=== PATIENT | female | born 1960 | race Caucasian/White ===

== ENCOUNTER 2021-07-19 12:47 | Inpatient (IN) | payer SELFPAY ==
[~2021-07-19] VITALS: Ht 167.6 cm; Wt 85.0 kg
[2021-07-19 13:13] LABS: BASOPHILS ABSOLUTE AUTO 0.06 K/mm3 (0.00-0.23); BASOPHILS PERCENT AUTO 1 % (0-2); EOSINOPHILS ABSOLUTE AUTO 0.12 K/mm3 (0.00-0.68); EOSINOPHILS PERCENT AUTO 3 % (0-6); Hematocrit 36.8 % (33.0-51.0); IMMATURE GRAN ABSOLUTE AUTO 0.02 K/mm3 (0.00-0.10); IMMATURE GRAN PERCENT AUTO 0 % (0-1); LYMPHOCYTES ABSOLUTE AUTO 1.64 K/mm3 (0.84-5.20); LYMPHOCYTES PERCENT AUTO 34 % (21-46); MONOCYTES ABSOLUTE AUTO 0.37 K/mm3 (0.16-1.47); MONOCYTES PERCENT AUTO 8 % (4-13); Mean Corpuscular HGB 28.4 pg (26.0-34.0); Mean Corpuscular HGB Conc 32.6 g/dL (31.5-36.5); Mean Corpuscular Volume 87 fL (80-100); Mean Platelet Volume 9.7 fL (9.1-12.4); NEUTROPHILS ABSOLUTE AUTO 2.58 K/mm3 (1.96-9.15); NEUTROPHILS PERCENT AUTO 54 % (41-73); Platelet Count 242 K/mm3 (150-400); RDW Coefficient Variation 13.3 % (11.7-14.2); RDW Standard Deviation 42.5 fL (35.1-46.3); Red Blood Cell Count 4.22 M/mm3 (3.80-5.20); White Blood Cell Count 4.79 K/mm3 (4.00-11.30)
[2021-07-19 13:32] LABS: Acetaminophen, Random <2.0 ug/mL (10.0-30.0); Alanine Aminotransfer (ALT/SGP 11 U/L (12-78); Albumin, Blood 2.7 g/dL (3.4-5.0); Albumin/Globulin Ratio 0.8 (0.8-1.8); Alk Phos 85 U/L (50-136); Anion Gap 6 mmol/L (6-16); Aspartate Aminotrans (AST/SGOT 11 U/L (12-37); Bilirubin, Total 0.2 mg/dL (0.1-1.0); Blood Urea Nitrogen 15 mg/dL (8-24); Bun/Creatinine Ratio 12.7 (12.0-20.0); CO2, Blood 24 mmol/L (21-32); Chloride, Blood 109 mmol/L (98-108); Creatinine, Blood 1.18 mg/dL (0.40-1.00); Ethanol (Alcohol), Blood, Med <3 mg/dL; Free Thyroxine 0.84 ng/dL (0.70-1.60); Globulin, Blood 3.2 g/dL (2.2-4.0); Glomerular Filtration Rate 46 (60-); Glucose, Blood 94 mg/dL (70-99); Salicylate <1.7 mg/dL (2.8-20.0); Sodium, Blood 139 mmol/L (136-145); Total Protein, Blood 5.9 g/dL (6.4-8.2)
[2021-07-19 13:51] LABS: Source, Urine Catheter
[2021-07-19 13:56] LABS: Appearance, Urine Clear (Clear); Bilirubin, Urine Neg (Neg); Blood, Urine Neg (Neg); Color, Urine Yellow (P-Yellow); Glucose Qualitative, Urine Neg (Neg); Ketones, Urine Neg (Neg); Leukocyte Esterase, Urine Neg (Neg); Nitrite, Urine Neg (Neg); Protein, Urine Neg (Neg); Specific Gravity, Urine 1.015 (1.003-1.022); Urobilinogen, Urine NORM (Normal)
[2021-07-19 14:05] LABS: Valproic Acid 33.1 ug/mL (50.0-100.0)
[2021-07-19 14:10] LABS: U Amphetamine Screen Not Detected; U Barbituate Screen Not Detected; U Benzodiazapine Screen DETECTED; U Buprenorphine Screen Not Detected; U Cocaine Screen Not Detected; U Methadone Screen Not Detected; U Methamphetamine Screen Not Detected; U Opiates Screen Not Detected; U Phencyclidine Screen Not Detected
[2021-07-19 14:11] LABS: U Oxycodone Screen Not Detected; U Propoxyphene Screen Not Detected
[2021-07-19 14:12] LABS: U Cannabinoids Screen Not Detected
[2021-07-19] MEDS ORDERED: OMEP20ER PO (14:44)
[2021-07-19] MEDS ORDERED: Prinivil10 MG PO (14:44)
[2021-07-19] MEDS ORDERED: LAMICTAL25 M1 PO (14:45)
[2021-07-19] MEDS ORDERED: TRAZ100 PO (14:46)
[2021-07-19] MEDS ORDERED: OXYB5 (14:46)
[2021-07-19] MEDS ORDERED: DIVA250ER (14:47)
[2021-07-19] MEDS ORDERED: TOPI100 PO (14:48)
[2021-07-19] MEDS ORDERED: ALPR.5 PO (14:48)
[2021-07-19] MEDS ORDERED: HYDR1TAB94 PO (14:49)
[2021-07-19] MEDS ORDERED: METO25ER (14:49)
--- NOTE | 2021-07-19 16:55 | NUR ---
PT ARRIVED TO ICU.
[2021-07-19] MEDS ORDERED: AMIT25 PO (17:39)
[2021-07-19 18:30] LABS: Valproic Acid 90.3 ug/mL (50.0-100.0)
--- NOTE | 2021-07-19 18:55 | NUR ---
SHIFT SUMMARY: Pt admitted to ICU from ED. She arrived intubated with 7.0 tube at 23 at the teeth. Pt moving BUE with stimulation. BLE flaccid. Pupils 2mm and reactive. Vent settings now at AC/VC, fiO2 35%, PEEP 5. OG on low intermittant suction. One dose of PRN hydralazine given upon pt arrival to unit. Home medications sent home with significant other. This RN spoke with poison control who recommend obtaining a valproate q 4 hours and an ammonia level daily.
--- NOTE | 2021-07-19 22:10 | NUR ---
PT'S SO SAMAN IS UPDATED BY PHONE. NO SIGNIFICANT CHANGES. HE IS INFORMED OF VISITING HOURS AND WILL CHECK IN TOMORROW.
--- NOTE | 2021-07-19 22:43 | NUR ---
PT IS INTUBATED AND SEDATED, ON VENTILATOR. DIRECT LINE OF SIGHT MONITORING
--- NOTE | 2021-07-19 22:50 | NUR ---
POISON CONTROL IS UPDATED WITH PT CONDITION. WILL UPDATE HOSPITALIST AND ADVISE OF POISON CONTROL RECOMMENDATION FOR DAILY AMMONIA LEVEL AND VALPROIS ACID LEVEL Q4.
[2021-07-19 23:43] LABS: Valproic Acid 123.5 ug/mL (50.0-100.0)
--- NOTE | 2021-07-20 00:55 | NUR ---
SAUL AT POISON CONTROL UPDATED WITH VALPROIC ACID LEVEL AND AMMONIA LEVEL. HE RECOMMENDS CONTINUING Q4 VALPROIC ACID LEVELS AND REPEAT AMMONIA LEVEL WITH AM LABS TOMORROW, 07/21/21. HOPSITALIST ALSO UPDATED.
[2021-07-20 03:50] LABS: BASOPHILS ABSOLUTE AUTO 0.03 K/mm3 (0.00-0.23); BASOPHILS PERCENT AUTO 0 % (0-2); EOSINOPHILS ABSOLUTE AUTO 0.07 K/mm3 (0.00-0.68); EOSINOPHILS PERCENT AUTO 1 % (0-6); Hematocrit 38.8 % (33.0-51.0); Hemoglobin 13.2 g/dL (11.5-16.0); IMMATURE GRAN ABSOLUTE AUTO 0.06 K/mm3 (0.00-0.10); IMMATURE GRAN PERCENT AUTO 1 % (0-1); LYMPHOCYTES ABSOLUTE AUTO 1.24 K/mm3 (0.84-5.20); LYMPHOCYTES PERCENT AUTO 11 % (21-46); MONOCYTES ABSOLUTE AUTO 0.53 K/mm3 (0.16-1.47); MONOCYTES PERCENT AUTO 5 % (4-13); Mean Corpuscular HGB 28.6 pg (26.0-34.0); Mean Corpuscular Volume 84 fL (80-100); Mean Platelet Volume 9.5 fL (9.1-12.4); NEUTROPHILS ABSOLUTE AUTO 9.25 K/mm3 (1.96-9.15); NEUTROPHILS PERCENT AUTO 83 % (41-73); Platelet Count 262 K/mm3 (150-400); RDW Coefficient Variation 13.2 % (11.7-14.2); RDW Standard Deviation 40.6 fL (35.1-46.3); Red Blood Cell Count 4.62 M/mm3 (3.80-5.20); White Blood Cell Count 11.18 K/mm3 (4.00-11.30)
--- NOTE | 2021-07-20 04:06 | NUR ---
SAMAN, PT'S SO, IS UPDATED BY PHONE. HE WILL CHECK IN LATER.
[2021-07-20 04:22] LABS: Alanine Aminotransfer (ALT/SGP 12 U/L (12-78); Albumin, Blood 2.5 g/dL (3.4-5.0); Albumin/Globulin Ratio 0.7 (0.8-1.8); Alk Phos 95 U/L (50-136); Anion Gap 10 mmol/L (6-16); Aspartate Aminotrans (AST/SGOT 11 U/L (12-37); Bilirubin, Total 0.3 mg/dL (0.1-1.0); Blood Urea Nitrogen 15 mg/dL (8-24); Bun/Creatinine Ratio 13.9 (12.0-20.0); CO2, Blood 22 mmol/L (21-32); Calcium, Blood 8.5 mg/dL (8.5-10.1); Chloride, Blood 107 mmol/L (98-108); Creatinine, Blood 1.08 mg/dL (0.40-1.00); Globulin, Blood 3.6 g/dL (2.2-4.0); Glomerular Filtration Rate 51 (60-); Glucose, Blood 97 mg/dL (70-99); Magnesium, Blood 1.9 mg/dL (1.6-2.4); Potassium, Blood 3.4 mmol/L (3.5-5.5); Sodium, Blood 139 mmol/L (136-145); Total Protein, Blood 6.1 g/dL (6.4-8.2)
[2021-07-20 05:13] LABS: Valproic Acid 128.7 ug/mL (50.0-100.0)
--- NOTE | 2021-07-20 05:16 | NUR ---
DR WOODRUFF IS CONTACTED REGARDING PT'S BP AND LENGTHENING QTC. ORDER FOR NS BOLUS RECEIVED. NO 12-LEAD EKG ORDERED
--- NOTE | 2021-07-20 05:33 | NUR ---
POISON CONTROL IS UPDATED. SEE NURSE NOTIFY REGARDING POTASSIUM AND MAGNESIUM LEVELS.
--- NOTE | 2021-07-20 06:06 | NUR ---
PT REMAINS SEDATED AND ON VENT WITH SAME SETTING ALL NIGHT. SHE WAS INITIALLY HYPERTENSIVE, BUT BP TRENDED DOWN GRADUALLY AND PT BECAME HYPOTENSIVE. NS FLUID BOLUS WAS GIVEN AND PT PLACED SUPINE WITH LEGS RAISED AND WARM BLANKETS APPLIED. BP IMPROVED WITH INTERVENTION. PUPILS ARE NOW 1MM, NO OTHER SIGNIFICANT CHANGES OCCURRED. POISON CONTROL IS FOLLOWING. WILL CONTINUE TO MONITOR AND REPORT TO ONCOMING SHIFT.
--- NOTE | 2021-07-20 07:00 | NUR ---
ASSUME CARE: I have assumed care of pt. At this time she is intubated and sedated with propofol at 15.
[2021-07-20 07:46] LABS: Valproic Acid 132.1 ug/mL (50.0-100.0)
--- NOTE | 2021-07-20 10:31 | NUR ---
POISON CONTROL: This RN spoke to poison control and updated them on pt status
[2021-07-20 16:16] LABS: Valproic Acid 114.6 ug/mL (50.0-100.0)
--- NOTE | 2021-07-20 18:34 | NUR ---
SHIFT SUMMARY: Propofol continues at 15. Valproate now trending down. K and mag replaced. Vent settings AC/VC 30%, peep 5. Tube feeds started at 25 mls/hr and now up to 35 mls/hr; goal rate is 50. Pt's silver colored locket necklace sent home with her significant other.
[2021-07-21 00:14] LABS: Valproic Acid 127.5 ug/mL (50.0-100.0)
--- NOTE | 2021-07-21 03:02 | NUR ---
SAMAN, PT'S SO, IS UPDATED BY PHONE.
[2021-07-21 03:28] LABS: BASOPHILS ABSOLUTE AUTO 0.01 K/mm3 (0.00-0.23); BASOPHILS PERCENT AUTO 0 % (0-2); EOSINOPHILS ABSOLUTE AUTO 0.04 K/mm3 (0.00-0.68); EOSINOPHILS PERCENT AUTO 0 % (0-6); Hematocrit 33.8 % (33.0-51.0); Hemoglobin 11.3 g/dL (11.5-16.0); IMMATURE GRAN ABSOLUTE AUTO 0.03 K/mm3 (0.00-0.10); IMMATURE GRAN PERCENT AUTO 0 % (0-1); LYMPHOCYTES ABSOLUTE AUTO 1.06 K/mm3 (0.84-5.20); LYMPHOCYTES PERCENT AUTO 9 % (21-46); MONOCYTES ABSOLUTE AUTO 0.44 K/mm3 (0.16-1.47); MONOCYTES PERCENT AUTO 4 % (4-13); Mean Corpuscular HGB 28.5 pg (26.0-34.0); Mean Corpuscular HGB Conc 33.4 g/dL (31.5-36.5); Mean Corpuscular Volume 85 fL (80-100); Mean Platelet Volume 9.6 fL (9.1-12.4); NEUTROPHILS ABSOLUTE AUTO 10.39 K/mm3 (1.96-9.15); NEUTROPHILS PERCENT AUTO 87 % (41-73); Platelet Count 202 K/mm3 (150-400); RDW Coefficient Variation 13.6 % (11.7-14.2); RDW Standard Deviation 42.7 fL (35.1-46.3); Red Blood Cell Count 3.96 M/mm3 (3.80-5.20); White Blood Cell Count 11.97 K/mm3 (4.00-11.30)
[2021-07-21 03:47] LABS: Alanine Aminotransfer (ALT/SGP 12 U/L (12-78); Albumin, Blood 1.9 g/dL (3.4-5.0); Albumin/Globulin Ratio 0.6 (0.8-1.8); Alk Phos 85 U/L (50-136); Anion Gap 8 mmol/L (6-16); Aspartate Aminotrans (AST/SGOT 8 U/L (12-37); Bilirubin, Total 0.2 mg/dL (0.1-1.0); Blood Urea Nitrogen 15 mg/dL (8-24); Bun/Creatinine Ratio 16.8 (12.0-20.0); CO2, Blood 21 mmol/L (21-32); Chloride, Blood 109 mmol/L (98-108); Creatinine, Blood 0.89 mg/dL (0.40-1.00); Globulin, Blood 3.4 g/dL (2.2-4.0); Glomerular Filtration Rate >60 (60-); Glucose, Blood 129 mg/dL (70-99); Potassium, Blood 3.6 mmol/L (3.5-5.5); Sodium, Blood 138 mmol/L (136-145); Total Protein, Blood 5.3 g/dL (6.4-8.2)
[2021-07-21 04:02] LABS: Valproic Acid 189.6 ug/mL (50.0-100.0)
--- NOTE | 2021-07-21 04:02 | NUR ---
POISON CONTROL IS UPDATED WITH AM LABS AND MOST RECENT VALPROIC ACID LEVEL WHICH IS CRITICALLY HIGH AT 189.6. WILL CALL DR. WOODRUFF FOR ORDERS.
[2021-07-21 04:26] LABS: Magnesium, Blood 2.2 mg/dL (1.6-2.4)
--- NOTE | 2021-07-21 06:14 | NUR ---
PT REMAINS SEDATED AND ON VENTILATOR WITH SAME SETTINGS. SHE RESPONDS ONLY TO ORAL SX WITH GRIMACE, NO RESPONSE TO PAIN IN EXT, HOMA 2MM. BP LABILE. SPUTUM CX PENDING, LS CLEAR, COARSE IN L BASE AT TIMES WITH OCAMPO/YELLOW/BROWN SPUTUM SX FROM ETT. BT ACTIVE WITH TF AT GOAL, NO RESIDUALS. GUILLERMO DRAINING GREENISH URINE. POISON CONTROL FOLLOWING AND NEXT VALPROIC ACID LEVEL IS DUE AT 0715. WILL CONTINUE TO MONITOR AND REPORT TO ONCOMING SHIFT.
[2021-07-21 08:00] LABS: Valproic Acid 178.6 ug/mL (50.0-100.0)
--- NOTE | 2021-07-21 09:36 | NUR ---
ASSUMED CARE PATIENT CONTINUES TO BE INTUBATED AND SEDATED ON 10MCG OF PROPOFOL. SHE IS RESTRAINTED BILATERALLY UPPER EXTREMETIES. SHE WITHDREW ALL EXTREMETIES TO PAINFUL STIMULI. + KENYETTA HOWEVER SLUGGISH TO LIGHT. WILL CONTINUE MONITOR. DID SPEAK WITH SO "SAMAN" AND GAVE HIM AN UPDATE.
[2021-07-21 12:26] LABS: Valproic Acid 178.9 ug/mL (50.0-100.0)
[2021-07-21 15:56] LABS: Valproic Acid 187.3 ug/mL (50.0-100.0)
--- NOTE | 2021-07-21 16:06 | NUR ---
Pt. was mostly unconsious. Prayed pastorally with pt. When I finished SO Zhao arrived. Established rapport with spouse. Facilitaed a short life review. SO verbalized gratitude for the visit and welcomed my return.
--- NOTE | 2021-07-21 18:11 | NUR ---
END OF SHIFT NOTE MUSA HAS BEEN STILL SEDATED/DROWSY ON THE VENTILATOR. SHE IS FOLLOWING COMMANDS TO LIFT EYE BROWS WHEN ASKED TO OPEN HER EYES. SHE WITHDRAWLS ALL EXTREMETIES TO PAINFUL STIMULI. SHE HAS COPIOUS ORAL SECRETIONS AND TENACIOUS OCAMPO/CREAMY SECRETIONS FROM THE ETT. SHE DOES HAVE A COUGH AND GAG WHEN STIMULATED. SHE HAS POSITIVE BT'S AND FLATUS BUT NO BM OF YET. HER VALPROIC ACID LEVELS CONTINUE TO INCREASE (SEE LABS). DR AARON IS AWARE. SIGNIFICANT OTHER WAS IN AT BEDSIDE TODAY AND ALSO SPOKE TO DR AARON ABOUT MUSA'S TREATMENT PLAN. PATIENT REMAINS RESTRAINED DUE TO HER UNPREDICTABLE STATE AND BEING LIGHTLY SEDATED WHILE ON THE VENTILATOR. WILL GIVE REPORT TO ONCOMING SHIFT TO RESUME CARE.
--- NOTE | 2021-07-21 19:30 | NUR ---
ASSUMED CARE OF PATIENT AT 1900. SHE REMAINS SEDATED AND INTUBATED, VENT SETTINGS UNCHANGED. VALPROIC ACID LEVEL HAS CONTINUED TO BE HIGH. POC FOR PT TO REMAIN INTUBATED UNTIL THIS TRENDS DOWN.
[2021-07-21 19:59] LABS: Valproic Acid 153.1 ug/mL (50.0-100.0)
[2021-07-21 23:41] LABS: Valproic Acid 120.7 ug/mL (50.0-100.0)
[2021-07-22 03:20] LABS: BASOPHILS ABSOLUTE AUTO 0.03 K/mm3 (0.00-0.23); BASOPHILS PERCENT AUTO 0 % (0-2); EOSINOPHILS ABSOLUTE AUTO 0.08 K/mm3 (0.00-0.68); EOSINOPHILS PERCENT AUTO 1 % (0-6); Hematocrit 29.5 % (33.0-51.0); Hemoglobin 10.1 g/dL (11.5-16.0); IMMATURE GRAN ABSOLUTE AUTO 0.12 K/mm3 (0.00-0.10); IMMATURE GRAN PERCENT AUTO 1 % (0-1); LYMPHOCYTES ABSOLUTE AUTO 0.62 K/mm3 (0.84-5.20); LYMPHOCYTES PERCENT AUTO 4 % (21-46); MONOCYTES PERCENT AUTO 6 % (4-13); Mean Corpuscular HGB 29.1 pg (26.0-34.0); Mean Corpuscular HGB Conc 34.2 g/dL (31.5-36.5); Mean Corpuscular Volume 85 fL (80-100); Mean Platelet Volume 9.6 fL (9.1-12.4); NEUTROPHILS ABSOLUTE AUTO 12.62 K/mm3 (1.96-9.15); NEUTROPHILS PERCENT AUTO 89 % (41-73); Platelet Count 180 K/mm3 (150-400); RDW Coefficient Variation 14.1 % (11.7-14.2); RDW Standard Deviation 43.7 fL (35.1-46.3); Red Blood Cell Count 3.47 M/mm3 (3.80-5.20); White Blood Cell Count 14.27 K/mm3 (4.00-11.30)
[2021-07-22 03:36] LABS: Valproic Acid 103.3 ug/mL (50.0-100.0)
--- NOTE | 2021-07-22 03:51 | NUR ---
PT'S SO YANIV IS UPDATED BY PHONE
[2021-07-22 03:57] LABS: Anion Gap 6 mmol/L (6-16); Blood Urea Nitrogen 15 mg/dL (8-24); Bun/Creatinine Ratio 16.9 (12.0-20.0); CO2, Blood 22 mmol/L (21-32); Calcium, Blood 8.4 mg/dL (8.5-10.1); Chloride, Blood 110 mmol/L (98-108); Creatinine, Blood 0.89 mg/dL (0.40-1.00); Glomerular Filtration Rate >60 (60-); Glucose, Blood 147 mg/dL (70-99); Potassium, Blood 4.1 mmol/L (3.5-5.5); Sodium, Blood 138 mmol/L (136-145)
[2021-07-22 04:50] LABS: PCO2 Arterial 29.1 mmHg (35-45); PO2 Arterial 69.4 mmHg (80-100); pH Blood Arterial 7.52 (7.35-7.45)
--- NOTE | 2021-07-22 06:08 | NUR ---
PT REMAINS INTUBATED AND ON VENT WITH SAME SETTINGS OVERNIGHT. SHE HAS SBT LASTING ABOUT 1 HOUR, PER DR. AARON. PT TOLERATES VENT AFTER RETURNING TO AC/VC MODE, SO PROPOFOL IS NOT RESTARTED. PT STARTS TO MOVE HER HEAD AND OPEN HER EYES, HOWEVER, SHE DOES NOT FOLLOW ANY COMMANDS AT THIS TIME. WILL CONTINUE TO MONITOR FOR SEDATION NEEDS. VALPROIC ACID LEVEL TRENDING DOWN WITH LAST VALUE 103.3. HOWEVER, AMMONIA LEVEL IS INCREASED FROM YESTERDAY. PT IS AFEBRILE AND LS ARE CLEAR. TF AT GOAL OF 55ML/HR. EXT WITH TRACE EDEMA ELEVATED ON PILLOWS. WILL CONTINUE TO MONITOR AND REPORT TO ONCOMING SHIFT.
[2021-07-22 07:19] LABS: Valproic Acid 92.4 ug/mL (50.0-100.0)
--- NOTE | 2021-07-22 14:08 | NUR ---
Pt. was mostly non responsive though breathingon her own. SO was present. Facilitated a short life review. SO (Zhao) was showing distress about the lack of progress in Pts. condition and was hoping to see a doctor. Normalized situation for the SO. Prayed with both Pt. and SO. SO displayed evidence of catharsis and emotion. SO inquired about local churches. Pt. and SO come from different confucianist backgrounds. SO verbalized gratitude for the visit. I would like to follow up and address the spiritual seeking particulary that of the SO.
--- NOTE | 2021-07-22 17:33 | NUR ---
SHIFT SUMMARY PT ON 15MCG PROPOFOL. MOVES ALL EXTREMETIES, OPENS EYES TO VOICE. LIFTS HEAD. DOES NOT TRACK OR FOLLOW COMMANDS. INTERMITTENT UPWARD GAZE. HAD 2 BMS TODAY. TF RUNNING 25ML/HR. SPONTANEOUS MODE ON VENT, 25% FIO2, PEEP 5. BOYFRIEND VISITED TODAY.
--- NOTE | 2021-07-22 20:00 | NUR ---
ASSUMED CARE OF PT AT 1915. REPORT RECEIVED AT BEDSIDE. PT PRESENTS IN BED. DOES OPEN EYES TO TACTILE STIMULUS. INTUBATED. PRESSURE SUPPORT 8/5 FIO2 25%. 99-100 PERCENT SATURATED. SECRETIONS MODERATE YELLOW. WILL REVIEW CHART AND PLAN OF CARE FOR THIS PT.
--- NOTE | 2021-07-23 01:32 | NUR ---
PT OPENS EYES UPON APPROACH OF CARE FROM THIS RN. REMAINS ON PRESSURE SUPPORT. MAINTAINS > 95 PERCENT SATURATION.
[2021-07-23 04:54] LABS: BASOPHILS ABSOLUTE AUTO 0.02 K/mm3 (0.00-0.23); BASOPHILS PERCENT AUTO 0 % (0-2); EOSINOPHILS ABSOLUTE AUTO 0.14 K/mm3 (0.00-0.68); EOSINOPHILS PERCENT AUTO 1 % (0-6); Hematocrit 30.6 % (33.0-51.0); Hemoglobin 9.8 g/dL (11.5-16.0); IMMATURE GRAN ABSOLUTE AUTO 0.05 K/mm3 (0.00-0.10); IMMATURE GRAN PERCENT AUTO 1 % (0-1); LYMPHOCYTES ABSOLUTE AUTO 0.73 K/mm3 (0.84-5.20); LYMPHOCYTES PERCENT AUTO 7 % (21-46); MONOCYTES ABSOLUTE AUTO 0.73 K/mm3 (0.16-1.47); MONOCYTES PERCENT AUTO 7 % (4-13); Mean Corpuscular HGB 28.5 pg (26.0-34.0); Mean Corpuscular Volume 89 fL (80-100); Mean Platelet Volume 9.9 fL (9.1-12.4); NEUTROPHILS ABSOLUTE AUTO 8.14 K/mm3 (1.96-9.15); NEUTROPHILS PERCENT AUTO 83 % (41-73); Platelet Count 155 K/mm3 (150-400); RDW Standard Deviation 45.6 fL (35.1-46.3); Red Blood Cell Count 3.44 M/mm3 (3.80-5.20); White Blood Cell Count 9.81 K/mm3 (4.00-11.30)
[2021-07-23 05:22] LABS: Anion Gap 6 mmol/L (6-16); Blood Urea Nitrogen 18 mg/dL (8-24); Bun/Creatinine Ratio 21.3 (12.0-20.0); CO2, Blood 22 mmol/L (21-32); Calcium, Blood 8.9 mg/dL (8.5-10.1); Chloride, Blood 109 mmol/L (98-108); Creatinine, Blood 0.85 mg/dL (0.40-1.00); Glomerular Filtration Rate >60 (60-); Glucose, Blood 131 mg/dL (70-99); Potassium, Blood 4.1 mmol/L (3.5-5.5); Sodium, Blood 137 mmol/L (136-145); Valproic Acid 47.5 ug/mL (50.0-100.0)
--- NOTE | 2021-07-23 06:52 | NUR ---
PT HAD REMAINED ON PRESSURE SUPPORT THRU THE NIGHT UNTIL APPROX 0400 THIS AM. PT BEGAN TO HAVE TIDAL VOLUMES BELOW 300 ML. RESPIRATORY THERAPIST CHANGES PT BACK TO AC SETTINGS. INCREASED PROPOFOL TO 30 MCG'S/KG/MIN FOR VENT TOLERANCE. PT'S SIGNIFICANT OTHER SAMAN PHONES THIS MORING. UPDATE GIVEN. WILL CONTINUE TO MONITOR PT, AND WILL REPORT OFF TO ONCOMING RN.
--- NOTE | 2021-07-23 11:41 | NUR ---
PT EXTUBATED AT 1100. REIORIENTED TO TIME, PLACE AND SITUATION. ONCE REORIENTED PT BEGINS CRYING AND REPEATING "HE HATES ME," "I LOVE HIM," "HE WILL NEVER TRUST ME AGAIN." WHEN ASKED WHERE SHE IS AFTER REORIENTATION, PT REPEATS THE LETTERS "[facility]." WILL ATTEMPT ASSESSMENT AGAIN
--- NOTE | 2021-07-23 18:32 | NUR ---
SHIFT SUMMARY PT IS NOW ORIENTED TO SELF, PLACE, TIME AND SITUATION. VOICE IS STILL HOARSE, AND SHE IS ONLY ABLE TO ANSWER QUESTIONS IN SIMPLE SENTANCES. SHE OFTEN REPEATS HERSELF. MOVES ALL EXTREMETIES WITH EQUAL STRENGTH, BUT HAS GENERIZED WEAKNESS. PT NOW ON ROOM AIR WITH SATS >93%. OCCASIONAL PRODUCTIVE COUGH. STRENGTH OF COUGH HAS IMPROVED THROUGHOUT THE DAY. PT EDUCATED ON IMPORTANCE OF COUGH. PT STATES "MY SISTER WANTS TO KILL ME." SISTER'S NAME IS HUMZA. PER PATIENT, HUMZA LIVES IN [place]. SCREENER NOTIFIED BY COLOR DEVELOPER THAT HUMZA IS NOT TO VISIT. PT DENIES SI. SUICIDE PRECAUTIONS D/C'D BY DR. JAMES.
--- NOTE | 2021-07-23 19:36 | NUR ---
ASSUMED CARE OF PT AT 1915. REPORT RECEIVED. PT PRESENTS IN BED RESTING. BLOOD PRESSURES NOTED TO BE TRENDING UPWARDS. WILL CONSIDER INTERVENTIONS. WILL REVIEW CHART AND PLAN OF CARE FOR THIS PT.
--- NOTE | 2021-07-23 21:17 | NUR ---
PT STATUS CHANGED TO MEDICAL WITH TELE. NO PLANS AT THIS TIME TO TRANSFER PT TO MEDICAL FLOOR. DID DISCUSS WITH PT THAT THIS WAS A POSSIBILITY THIS NIGHT.
--- NOTE | 2021-07-23 22:40 | NUR ---
PT HAS STATUS CHANGE TO MEDICAL WITH TELE. NO PLANS AT THIS TIME TO MOVE PT FROM ICU ROOM 9. PT AWARE AND IS ACCEPTING IF ROOM IS NEEDED FOR ICU PT. UPON GREETING, PT WAS ASKING WHY HER BOYFRIEND "YANIV" WAS BEING LAUGHED AT, AND WHY PEOPLE WERE SAYING BAD THINGS ABOUT HER DOG. PT WAS REASSURED THAT NO ONE WAS SPEAKING ILL OF HER BOYFRIEND OR HER DOG. PT ACCEPTING OF THIS. WAS EASILY MOVED INTO CONVERSATION ABOUT HER LOVE FOR HER ANIMALS. PT HAS REMAINED TRUSTING, AND PLEASANT SINCE. POISON CONTROLLETI RN CALLS TO CHECK ON PT. UPDATE GIVEN. POISON CONTROL STATES THAT PATIENT WILL BE REMOVED FROM THEIR SERVICE UNLESS THEY ARE NEEDED AGAIN. WILL CONTINUE TO MONITOR PT.
--- NOTE | 2021-07-24 01:28 | NUR ---
PT TRANSFERRED TO ROOM 213. REPORT GIVEN TO YOLI JOHNSON. PT ABLE TO STAND AND PIVOT TRANSFER FROM BED TO BED. ALL BELONGINGS BROUGHT TO ROOM.
[2021-07-24 05:31] LABS: BASOPHILS ABSOLUTE AUTO 0.06 K/mm3 (0.00-0.23); BASOPHILS PERCENT AUTO 1 % (0-2); EOSINOPHILS ABSOLUTE AUTO 0.18 K/mm3 (0.00-0.68); EOSINOPHILS PERCENT AUTO 2 % (0-6); Hematocrit 34.1 % (33.0-51.0); Hemoglobin 10.8 g/dL (11.5-16.0); IMMATURE GRAN ABSOLUTE AUTO 0.06 K/mm3 (0.00-0.10); IMMATURE GRAN PERCENT AUTO 1 % (0-1); LYMPHOCYTES ABSOLUTE AUTO 1.01 K/mm3 (0.84-5.20); LYMPHOCYTES PERCENT AUTO 14 % (21-46); MONOCYTES ABSOLUTE AUTO 0.75 K/mm3 (0.16-1.47); MONOCYTES PERCENT AUTO 10 % (4-13); Mean Corpuscular HGB 28.1 pg (26.0-34.0); Mean Corpuscular HGB Conc 31.7 g/dL (31.5-36.5); Mean Corpuscular Volume 89 fL (80-100); Mean Platelet Volume 10.2 fL (9.1-12.4); NEUTROPHILS ABSOLUTE AUTO 5.38 K/mm3 (1.96-9.15); NEUTROPHILS PERCENT AUTO 72 % (41-73); Platelet Count 177 K/mm3 (150-400); RDW Coefficient Variation 13.5 % (11.7-14.2); RDW Standard Deviation 43.6 fL (35.1-46.3); Red Blood Cell Count 3.85 M/mm3 (3.80-5.20); White Blood Cell Count 7.44 K/mm3 (4.00-11.30)
[2021-07-24 06:03] LABS: Alanine Aminotransfer (ALT/SGP 12 U/L (12-78); Albumin, Blood 2.3 g/dL (3.4-5.0); Albumin/Globulin Ratio 0.7 (0.8-1.8); Alk Phos 92 U/L (50-136); Anion Gap 10 mmol/L (6-16); Aspartate Aminotrans (AST/SGOT 13 U/L (12-37); Bilirubin, Total 0.4 mg/dL (0.1-1.0); Blood Urea Nitrogen 16 mg/dL (8-24); Bun/Creatinine Ratio 18.5 (12.0-20.0); CO2, Blood 25 mmol/L (21-32); Calcium, Blood 8.8 mg/dL (8.5-10.1); Chloride, Blood 108 mmol/L (98-108); Creatinine, Blood 0.87 mg/dL (0.40-1.00); Globulin, Blood 3.5 g/dL (2.2-4.0); Glomerular Filtration Rate >60 (60-); Glucose, Blood 99 mg/dL (70-99); Magnesium, Blood 2.1 mg/dL (1.6-2.4); Phosphorus, Blood 4.1 mg/dL (2.5-4.9); Potassium, Blood 4.1 mmol/L (3.5-5.5); Sodium, Blood 143 mmol/L (136-145); Total Protein, Blood 5.8 g/dL (6.4-8.2)
--- NOTE | 2021-07-24 06:26 | NUR ---
SUMMARY RECEIVED FROM ICU THIS SHIFT AND IS ALERT AND ORIENTED.PT REPORTED TO BE EXTUBATED 07/23/20 AM.PT APPEARS TO BE FORCING HER VOICE.REPORTS SINCE INTUBATION.WILL REPORT TO DAY RN.ALSO,NOTED PT HAS SLIGHT TREMOR TO TORSO AND AND HEAD.PT REPORTS THIS BASELINE AND HAS HX "SEIZURES"
--- NOTE | 2021-07-24 14:19 | NUR ---
Pt. was alert and in bed. Voice was weak, presubably from recent intubation. Pt. welcomed visit. Pt. said she remembered my previous visits when she was in ICU. Facilitated a life review that reveal Family loss, trauma, and complications. Explored sources of meaning and purpose. Listened empathetically. Pt. displayed evidence of remorse over life choices, and grief cartharsis over loss of mother and one sister in the past two years. Pt. verbalized remorse and increased resolve to get well. SO arrived during visit. Normalized the pts. experience. Prayed with pt. Will monitor for further family/life/sanna complications.
--- NOTE | 2021-07-24 17:11 | NUR ---
SHIFT SUMMARY: OVERDOSE PATIENT IS ALERT AND ORIENTED X4. VS ARE WNL AND IS ON RA. PATIENT HAD A SWALLOW EVAL SINCE SHES BEEN HAVING A HARD TIME TALKING. PATIENT COULDN'T SWALLOW WATER WITHOUT TRYING TO BREATHE IN WHICH MADE HER AN ASPIRATION RISK. SPEECH THERAPIST ADVISED HER TO BE NPO UNTIL TOMORROW AND WILL BE RE-EVALUATED SINCE THE PATIENT WAS EXTABATED EARLIER TODAY. OTHERWISE PATIENT IS INDEPENDANT IN THE ROOM. PATIENT IS VOIDING AND HAS ACTIVE BOWEL TONES. CALL LIGHT WITHIN REACH. CALLS APPROPRIATELY.
--- NOTE | 2021-07-24 20:25 | NUR ---
RECEIVED REPORT AND ASSUMED CARE OF PT. SHE IS SITTING UP IN BED, CONVERSING, VOICE HOARSE. SHE DENIES ANY SUICIDAL IDEATION OR PLANS, STATES THAT SHE JUST HAD A BAD MOMENT. SHE STATES THAT SHE FEELS SHE "REALLY MESSED UP". WARM BLANKETS PROVIDED. PT CONVERSING ABOUT FAMILY, ESPECIALLY HER GRANDDAUGHTER. SHE DENIES ANY OTHER NEEDS AT THIS TIME.
--- NOTE | 2021-07-25 05:00 | NUR ---
SHIFT SUMMARY: MUSA IS A&OX4. VSS, NO ACUTE EVENTS OVERNIGHT. SHE IS INDEPENDENT IN THE ROOM, USES THE CALL LIGHT APPROPRIATELY, DENIES ANY DIFFICULTY URINATING, AND TOLERATED THE MEDS CRUSHED IN APPLESAUCE WITH NO COUGH OR DIFFICULTY SWALLOWING. SHE IS LYING IN BED WITH THE CALL LIGHT IN REACH. WILL REPORT TO DAY SHIFT RN.
--- NOTE | 2021-07-25 17:29 | NUR ---
DISCHARGE PT DISCHARGED HOME FROM UNIT AT APROX 1700. PT GIVEN WRITTEN AND VERBAL DISCHARGE INSTRUCTIONS AND VERBALIZED UNDERSTANDING. IV REMOVED. DECLINED WC, AMBULATED INDEPENDENTLY TO CAR.
== END 2021-07-25 17:02 | disposition home or self-care (01) | DRG 917 ==
LOC: ER 12:47 → EDBD 12:47 → ERHOLD 15:33 → ICUW 15:33 → SURS 07-24 01:00
PROVIDERS: Emergency Medicine; Internal Medicine Critical Care Medicine; Nurse Practitioner Acute Care; ADMIT Internal Medicine
PROC: 0BH18EZ Insertion of Endotracheal Airway into Trachea, Via Natural or Artificial Opening Endoscopic (ICD-10-PCS; principal; 2021-07-19)
PROC: 5A1945Z Respiratory Ventilation, 24-96 Consecutive Hours (ICD-10-PCS; 2021-07-19)
DX: T42.4X2A Poisoning by benzodiazepines, intentional self-harm, initial encounter (principal); J96.01 Acute respiratory failure with hypoxia; J69.0 Pneumonitis due to inhalation of food and vomit; Z99.11 Dependence on respirator [ventilator] status; N17.9 Acute kidney failure, unspecified; F33.2 Major depressive disorder, recurrent severe without psychotic features; T42.6X2A Poisoning by other antiepileptic and sedative-hypnotic drugs, intentional self-harm, initial encounter; I10 Essential (primary) hypertension; K21.9 Gastro-esophageal reflux disease without esophagitis; F41.9 Anxiety disorder, unspecified; Z91.51 Personal history of suicidal behavior; Z79.899 Other long term (current) drug therapy
CPT/HCPCS: 31500; 36415; 36600; 51702; 71045; 80048; 80053; 80164; 81003; 81025; 82140; 82803; 83735; 84100; 84439; 84443; 85025; 87070; 87077; 87147; 87186; 87205; 92526; 92610; 93005; 93010; 94002; 94003; 99285-25; A9270; C1751; C9113; G0480; J0330; J0360; J0456; J0696; J1650; J2704; J3010; J3475; J3480; J7030; J7050; J7120

== ENCOUNTER 2022-01-06 07:45 | Day surgery (SDC) | payer MEDICARE ==
[~2022-01-06] VITALS: Ht 160 cm; Wt 86.2 kg
[~2022-01-06 07:45] MED LIST: ALPR.5 PO; AMIT25 PO; DIVA250ER; HYDR1TAB94 PO; LAMICTAL25 M1 PO; METO25ER; OMEP20ER PO; OXYB5; Prinivil10 MG PO; TOPI100 PO; TRAZ100 PO
[2022-01-06] MEDS ORDERED: AMIT50 PO (08:41)
--- NOTE | 2022-01-06 09:35 | NUR ---
01/06/22 0935 BLADIMIR FRANCIS 0.15MG OF EPI (1MG/1ML) ADDED TO 30MLS OF LIDOCAINE 1% TO CREATE A LOCAL SOLUTION OF LIDOCAINE 1% WITH EPI 1:200,000.
--- NOTE | 2022-01-06 11:01 | NUR ---
01/06/22 1101 MAURILIO IBRAHIM PT STATES HUNGRY BUT DOES NOT WANT ANY FOOD. SHE WANTS A BREAKFAST SANDWICH THAT HER IS GOING TO GET HER. SHE DENIES PAIN AT THIS TIME. CHANGED GAUZE PAD/LIP DRESSING. SHOWED PT HOW TO DO IT.
== END 2022-01-06 11:20 | disposition home or self-care (01) ==
LOC: ORSCSDS 07:45
PROVIDERS: Otolaryngology
PROC: 09BM0ZZ Excision of Nasal Septum, Open Approach (ICD-10-PCS; principal; 2022-01-06 09:00)
DX: J34.2 Deviated nasal septum (principal); J34.3 Hypertrophy of nasal turbinates; K21.9 Gastro-esophageal reflux disease without esophagitis; R56.9 Unspecified convulsions; Z87.891 Personal history of nicotine dependence; E66.9 Obesity, unspecified; Z68.33 Body mass index [BMI] 33.0-33.9, adult; Z79.899 Other long term (current) drug therapy
CPT/HCPCS: J0171; J1100; J1885; J2250; J2370; J2405; J2704; J3010

== ENCOUNTER 2022-01-18 17:00 | Emergency (ER) | payer MEDICARE ==
[~2022-01-18] VITALS: Ht 162.6 cm; Wt 81.7 kg
[~2022-01-18 17:00] MED LIST changes: +AMIT50 PO
[2022-01-18] MEDS ORDERED: Roxicodone5 MG PO (17:58)
== END 2022-01-18 18:00 | disposition home or self-care (01) ==
LOC: ER 17:00
DX: S82.402A Unspecified fracture of shaft of left fibula, initial encounter for closed fracture (principal); X58.XXXA Exposure to other specified factors, initial encounter; Z79.899 Other long term (current) drug therapy
CPT/HCPCS: 99281

== ENCOUNTER 2022-06-22 17:35 | Emergency (ER) | payer MEDICARE ==
[~2022-06-22] VITALS: Ht 162.6 cm; Wt 88.5 kg
[~2022-06-22 17:35] MED LIST changes: +Roxicodone5 MG PO
== END 2022-06-22 18:55 | disposition home or self-care (01) ==
LOC: ER 17:35
DX: I26.99 Other pulmonary embolism without acute cor pulmonale (principal)
CPT/HCPCS: 99283-25

== ENCOUNTER 2023-05-02 09:30 | Day surgery (SDC) | payer MEDICARE ==
[~2023-05-02] VITALS: Ht 160 cm; Wt 90.7 kg
[2023-05-02] VITALS (13 sets, daily range): BP systolic 103–144; BP diastolic 55–81
[~2023-05-02 09:30] MED LIST changes: +DICLOFENAC SOD100 GM; +MOTRIN IB200 MG PO
--- NOTE | 2023-05-02 10:28 | NUR ---
WC inTO Day Surgery. PT HAS DIFFICULTY WALKING D/T "BAD KNEES". Pre-Op teaching done. Pt verbalizes understanding. History, Chart, Medications and Allergies reviewed before start of procedure.Patient confirms NPO status and agrees with scheduled surgery. Patient States Post-Procedure ride home has been arranged.
[2023-05-02] MEDS ORDERED: FAMO20 (10:47)
[2023-05-02] MEDS ORDERED: PANT20 (10:50)
--- NOTE | 2023-05-02 11:04 | NUR ---
2 ADDITION IV ATTEMPTS PER THIS RN
--- NOTE | 2023-05-02 11:17 | NUR ---
05/02/23 Nia Fuentes HISTORY, CHART, MEDICATIONS AND ALLERGIES REVIEWED BEFORE START OF PROCEDURE. PATIENT CONFIRMS NPO STATUS AND AGREES WITH SCHEDULED PROCEDURE. 3-LEAD EKG REVIEWED WITH PHYSICIAN PRIOR TO START OF PROCEDURE. MONITOR INTACT WITH CONTINUOUS PULSE OXIMETRY,CAPNOGRAPHY, 3-LEAD EKG, INTERMITTENT BP. SUPPLEMENTAL O2 TO BE TITRATED THROUGHOUT PROCEDURE TO MAINTAIN O2 SATURATION ABOVE 90%. PATIENT DETERMINED TO BE ASA APPROPRIATE FOR PROPOFOL SEDATION PRIOR TO START OF PROCEDURE BY .
--- NOTE | 2023-05-02 12:16 | NUR ---
VSS. NO C/O VERBALIZED AT THIS TIME. TOLERATING SIPS OF APPLE JUICE AND CRACKERS. PATIENT HAS RIDE HOME ARRANGED WITH SIGNIFICANT OTHER. Gait steady with standing. Discharge instructions reviewed with patient. Patient verbalizes understanding. Copy given to patient to take home.
== END 2023-05-02 12:16 | disposition home or self-care (01) ==
LOC: ORSCMMR 09:30 → ORD 10:30 → ORSCMMR 10:30
PROVIDERS: Internal Medicine Gastroenterology
PROC: 0DB48ZX Excision of Esophagogastric Junction, Via Natural or Artificial Opening Endoscopic, Diagnostic (ICD-10-PCS; principal; 2023-05-02 10:30)
PROC: 0D757ZZ Dilation of Esophagus, Via Natural or Artificial Opening (ICD-10-PCS; principal; 2023-05-02 10:30)
PROC: 0DB58ZX Excision of Esophagus, Via Natural or Artificial Opening Endoscopic, Diagnostic (ICD-10-PCS; principal; 2023-05-02 10:30)
DX: R13.10 Dysphagia, unspecified (principal); K44.9 Diaphragmatic hernia without obstruction or gangrene; G40.909 Epilepsy, unspecified, not intractable, without status epilepticus; K21.9 Gastro-esophageal reflux disease without esophagitis; F32.A Depression, unspecified; Z79.899 Other long term (current) drug therapy
CPT/HCPCS: 88305; 88312; A9270; C1726; J2405; J2704; J7120

== ENCOUNTER → 2024-03-06 | Outpatient (CLI) | payer MEDICARE ==
[~2024-03-06] MED LIST changes: +FAMO20; +PANT20
[2024-03-06 15:46] LABS: BASOPHILS ABSOLUTE AUTO 0.06 K/mm3 (0.00-0.23); BASOPHILS PERCENT AUTO 1 % (0-2); EOSINOPHILS ABSOLUTE AUTO 0.12 K/mm3 (0.00-0.68); EOSINOPHILS PERCENT AUTO 2 % (0-6); Hematocrit 40.3 % (33.0-51.0); Hemoglobin 13.3 g/dL (11.5-16.0); IMMATURE GRAN ABSOLUTE AUTO 0.04 K/mm3 (0.00-0.10); IMMATURE GRAN PERCENT AUTO 1 % (0-1); LYMPHOCYTES ABSOLUTE AUTO 1.93 K/mm3 (0.84-5.20); LYMPHOCYTES PERCENT AUTO 31 % (21-46); MONOCYTES ABSOLUTE AUTO 0.51 K/mm3 (0.16-1.47); MONOCYTES PERCENT AUTO 8 % (4-13); Mean Corpuscular HGB 30.6 pg (26.0-34.0); Mean Corpuscular Volume 93 fL (80-100); NEUTROPHILS ABSOLUTE AUTO 3.64 K/mm3 (1.96-9.15); NEUTROPHILS PERCENT AUTO 58 % (41-73); Platelet Count 248 K/mm3 (150-400); RDW Coefficient Variation 13.2 % (11.7-14.2); RDW Standard Deviation 45.4 fL (35.1-46.3); Red Blood Cell Count 4.34 M/mm3 (3.80-5.20)
[2024-03-06 16:36] LABS: Anion Gap 12 mmol/L (3-11); Blood Urea Nitrogen 29 mg/dL (8-24); Bun/Creatinine Ratio 26.9 (12.0-20.0); CHOL/HDL RATIO 2.6; CO2, Blood 22 mmol/L (21-32); Calcium, Blood 9.6 mg/dL (8.5-10.1); Chloride, Blood 111 mmol/L (98-108); Cholesterol 151 mg/dL (50-200); Creatinine, Blood 1.08 mg/dL (0.40-1.00); Glomerular Filtration Rate 57 (60-); Glucose, Blood 82 mg/dL (70-99); HDL Cholesterol 58 mg/dL (>39); LDL/HDL RATIO 1.2; Low Density Lipoprotein Chol 68 mg/dL (0-110); Potassium, Blood 3.9 mmol/L (3.5-5.5); Sodium, Blood 141 mmol/L (136-145); Triglycerides 125 mg/dL (30-160); Very Low Density Lipoprot Chol 25 mg/dL (6-32)
== END | disposition home or self-care (01) ==
LOC: LAB 11:25 → LAB SHORT 11:25
PROVIDERS: Nurse Practitioner Family
DX: N18.30 Chronic kidney disease, stage 3 unspecified (principal); E78.5 Hyperlipidemia, unspecified; R73.03 Prediabetes
CPT/HCPCS: 80048; 80061; 83036; 85025

== ENCOUNTER 2024-05-08 16:40 | Emergency (ER) | payer MEDICARE ==
[~2024-05-08] VITALS: Ht 160 cm; Wt 65.3 kg
[2024-05-08 17:58] LABS: BASOPHILS ABSOLUTE AUTO 0.06 K/mm3 (0.00-0.23); BASOPHILS PERCENT AUTO 0 % (0-2); EOSINOPHILS ABSOLUTE AUTO 0.08 K/mm3 (0.00-0.68); EOSINOPHILS PERCENT AUTO 1 % (0-6); Hematocrit 42.9 % (33.0-51.0); Hemoglobin 14.5 g/dL (11.5-16.0); IMMATURE GRAN ABSOLUTE AUTO 0.08 K/mm3 (0.00-0.10); IMMATURE GRAN PERCENT AUTO 1 % (0-1); LYMPHOCYTES PERCENT AUTO 11 % (21-46); MONOCYTES ABSOLUTE AUTO 0.65 K/mm3 (0.16-1.47); MONOCYTES PERCENT AUTO 5 % (4-13); Mean Corpuscular HGB 30.8 pg (26.0-34.0); Mean Corpuscular HGB Conc 33.8 g/dL (31.5-36.5); Mean Corpuscular Volume 91 fL (80-100); Mean Platelet Volume 9.5 fL (9.1-12.4); NEUTROPHILS PERCENT AUTO 83 % (41-73); Platelet Count 290 K/mm3 (150-400); RDW Coefficient Variation 13.5 % (11.7-14.2); RDW Standard Deviation 46.1 fL (35.1-46.3); Red Blood Cell Count 4.71 M/mm3 (3.80-5.20); White Blood Cell Count 13.57 K/mm3 (4.00-11.30)
[2024-05-08 18:15] LABS: Albumin, Blood 3.2 g/dL (3.4-5.0); Albumin/Globulin Ratio 0.9 (0.8-1.8); Bilirubin, Total 0.3 mg/dL (0.1-1.0); Calcium, Blood 9.4 mg/dL (8.5-10.1); Creatinine, Blood 0.96 mg/dL (0.40-1.00); Globulin, Blood 3.4 g/dL (2.2-4.0); Potassium, Blood 3.8 mmol/L (3.5-5.5); Total Protein, Blood 6.6 g/dL (6.4-8.2)
[2024-05-08 22:35] VITALS: BP 130/91
[2024-05-08] MEDS ORDERED: DICY20 PO (22:44)
[2024-05-08] MEDS ORDERED: Dicyclomine HCl 20 MG Tab PO ONE (22:45)
== END 2024-05-08 22:55 | disposition home or self-care (01) ==
LOC: ER 16:40
PROVIDERS: Physician Assistant
DX: K59.00 Constipation, unspecified (principal); I10 Essential (primary) hypertension; K21.9 Gastro-esophageal reflux disease without esophagitis; F32.A Depression, unspecified; Z79.899 Other long term (current) drug therapy; Z91.018 Allergy to other foods
CPT/HCPCS: 74177; 80053; 85025; 99284-25; A9270; Q9967

== ENCOUNTER 2024-10-03 10:06 | Day surgery (SDC) | payer MEDICARE ==
[~2024-10-03] VITALS: Ht 160 cm; Wt 62.9 kg
[~2024-10-03 10:06] MED LIST changes: +DICY20 PO; +Lactated Ringer's 1,000 ML IV ONE; +propofoL 50 ML IV ONE
[2024-10-03] MEDS ORDERED: MIRALAX17 GM (11:09)
[2024-10-03] MEDS ORDERED: MOUNJARO5 MG/0.5 M (11:09)
[2024-10-03] MEDS ORDERED: CYCL10 (11:12)
[2024-10-03] MEDS ORDERED: Lactated Ringer's 1,000 ML IV ONE (11:24)
[2024-10-03 13:37] VITALS: BP 98/64
== END 2024-10-03 13:39 | disposition home or self-care (01) ==
LOC: ORSCSDS 10:06
PROVIDERS: Internal Medicine Gastroenterology
PROC: 0DJD8ZZ Inspection of Lower Intestinal Tract, Via Natural or Artificial Opening Endoscopic (ICD-10-PCS; principal; 2024-10-03 11:30)
DX: R10.32 Left lower quadrant pain (principal); K59.00 Constipation, unspecified; N18.30 Chronic kidney disease, stage 3 unspecified; Z79.899 Other long term (current) drug therapy
CPT/HCPCS: J2704; J7120

== ENCOUNTER → 2025-01-09 | Outpatient (CLI) | payer MEDICARE ==
[~2025-01-09] MED LIST changes: +CYCL10; -Lactated Ringer's 1,000 ML IV ONE; +MIRALAX17 GM; +MOUNJARO5 MG/0.5 M; -propofoL 50 ML IV ONE
[2025-01-09 15:53] LABS: BASOPHILS ABSOLUTE AUTO 0.07 K/mm3 (0.00-0.23); BASOPHILS PERCENT AUTO 1 % (0-2); EOSINOPHILS ABSOLUTE AUTO 0.09 K/mm3 (0.00-0.68); EOSINOPHILS PERCENT AUTO 1 % (0-6); Hematocrit 40.6 % (33.0-51.0); Hemoglobin 13.4 g/dL (11.5-16.0); IMMATURE GRAN ABSOLUTE AUTO 0.02 K/mm3 (0.00-0.10); IMMATURE GRAN PERCENT AUTO 0 % (0-1); LYMPHOCYTES ABSOLUTE AUTO 1.64 K/mm3 (0.84-5.20); LYMPHOCYTES PERCENT AUTO 25 % (21-46); MONOCYTES ABSOLUTE AUTO 0.49 K/mm3 (0.16-1.47); MONOCYTES PERCENT AUTO 8 % (4-13); Mean Corpuscular HGB Conc 33.0 g/dL (31.5-36.5); Mean Corpuscular Volume 94 fL (80-100); NEUTROPHILS ABSOLUTE AUTO 4.17 K/mm3 (1.96-9.15); NEUTROPHILS PERCENT AUTO 64 % (41-73); NRBC ABSOLUTE 0.00 K/mm3 (0.00-0.02); NRBC Auto 0.0 /100 WBC (0.0-0.2); Platelet Count 282 K/mm3 (150-400); RDW Coefficient Variation 12.3 % (11.7-14.2); RDW Standard Deviation 42.7 fL (35.1-46.3)
[2025-01-09 16:41] LABS: Alanine Aminotransfer (ALT/SGP 15.0 U/L (12-78); Albumin, Blood 3.3 g/dL (3.4-5.0); Albumin/Globulin Ratio 1.0 (0.8-1.8); Anion Gap 7.0 mmol/L (3-11); Aspartate Aminotrans (AST/SGOT 8.0 U/L (12-37); Bilirubin, Total 0.2 mg/dL (0.1-1.0); Blood Urea Nitrogen 19.0 mg/dL (8-24); CO2, Blood 27.0 mmol/L (21-32); Calcium, Blood 9.0 mg/dL (8.5-10.1); Chloride, Blood 104.0 mmol/L (98-108); Creatinine, Blood 1.05 mg/dL (0.40-1.00); Globulin, Blood 3.3 g/dL (2.2-4.0); Glucose, Blood 75.0 mg/dL (70-99); Potassium, Blood 4.1 mmol/L (3.5-5.5); Sodium, Blood 134.0 mmol/L (136-145); Total Protein, Blood 6.6 g/dL (6.4-8.2)
== END ==
LOC: LAB 14:47 → LAB SHORT 14:47
PROVIDERS: Student in an Organized Health Care Education/Training Program
DX: N18.31 Chronic kidney disease, stage 3a (principal)
CPT/HCPCS: 80053; 85025